=== PATIENT | male | born 1960 | race Caucasian/White ===

== ENCOUNTER → 2018-03-10 | Outpatient (CLI) | payer OTHER ==
--- NOTE | 2018-03-21 00:07 | CON ---
[address] [address] CONSULTATION Name: EDITABILLY MEEKS Room: [facility]..#: [id number] Admission: 03/10/18 Attend Phys: Leon Hauser MD Discharge: Date of : 62 Report #: [id number] THIS REPORT FOR: //name// CC: Dr. Fernando Mackey DATE OF CONSULTATION: March 10, 2018 [facility] RADIATION ONCOLOGY CONSULT NOTE REFERRING PHYSICIANS: Include Edi Bashir MD; Fernando Fuller DO and Dr. Mackey. 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 HISTORY OF PRESENT ILLNESS: The patient is a 57-year-old gentleman who has a past medical history of testicular cancer. He underwent a left orchiectomy on 04/15/1988. This was performed by his urologist, Dr. Encarnacion at [facility]. Pathology revealed seminoma. He indicated that he went on to receive adjuvant radiation therapy at that time at [facility]. He indicated that the radiation therapy lasted about 4 weeks and he has tattoos which indicated to indicate the keily and the bottom as well as the top of the babcock. He then went on to develop mass involving the right testicle and he underwent a right orchiectomy as well. He indicated that he went on to receive testosterone therapy until about 11/26/2017. He also has a history of coronary artery disease and he underwent coronary artery stent placement in 2007. He also has a history of methicillin-resistant Staphylococcus aureus infection and he also has a history of obstructive sleep apnea. He went on to develop pain in the left arm around August 2017. A CT scan of the left humerus revealed a lesion involving that area. He had a biopsy of that lesion on 11/19/[address] Mackey. The pathology revealed metastatic adenocarcinoma consistent with a prostate origin with focal neuroendocrine features. He also had a lesion involving the 7th thoracic vertebral body. He had a PSA checked on 12/02/2017 and it was 24.41. Then he went on to receive treatment with Dr. Bashir. He also received radiation therapy to the proximal left humerus that was completed on 12/18/2017. He received 3000 cGy in 300 cGy daily fractions. He was started on Xgeva, Zytiga, and prednisone in November 2017. He had developed increasing pain in his back. His PSA on 02/23/2018 was 0.28. The patient had a bone scan on 03/02/2018 and that was performed at diagnostic imaging centers and that revealed uptake in the spine that was most pronounced in the thoracic and lumbar spine and most pronounced at the 7th thoracic vertebral body, the 8th thoracic vertebral body, the 9th [place] [address] CONSULTATION Name: BILLY KOHLER Room: [facility] Rafiq#: [id number] Admission: 03/10/18 Attend Phys: Leon Hauser MD Discharge: Date of : 62 Report #: [id number] body, and the 11th thoracic vertebral body. He had an MRI of the thoracic spine on 01/27/2018 and that revealed extensive osseous metastatic disease involving the thoracic vertebral bodies, from the 5th thoracic vertebral body to the 12th thoracic vertebral body. Some metastatic disease involved the medial aspect of the left 8th, 9th and 10th ribs. He presents to be evaluated for possible palliative radiation therapy. His medications are 5 mg oxycodone 2-3 times a day. He is also on 30 mg of extended release morphine twice a day for pain control. PAST MEDICAL HISTORY AND PAST SURGICAL HISTORY: Includes myocardial infarction in 2007, he had coronary artery stents placed at that time, hyperlipidemia, hypertension, history of methicillin-resistant Staphylococcus aureus infection on the chest area, he is also using a CPAP machine for sleep apnea. He had a fistula closure in the rectal area in 2005. MEDICATIONS: Include 30 mg extended release morphine that he takes every 12 hours, 5 mg oxycodone, he takes 2-3 times a day, 81 mg aspirin a day, Mayi, carvedilol, Zytiga, prednisone, Os-Denzel, denosumab, and Ambien. ALLERGIES: HE DOES HAVE AN ADVERSE REACTION TO LISINOPRIL, WHICH CAUSES HIM TO HAVE A COUGH. FAMILY HISTORY: The patient's mother had lung cancer. SOCIAL HISTORY: The patient was in recruiting administrator sales. He is . Cigarettes: He smokes a half pack of cigarettes per day, and has done so for at least the last 5 years. REVIEW OF SYSTEMS: GENERAL: The patient denied having any fevers or chills. SKIN: The patient denied having any color changes or itching. LYMPH NODES: The patient denied having enlarged or painful glands in the neck. ENDOCRINE: He does have some increased thirst. HEMATOLOGY/IMMUNOLOGY: He denied having any recent bleeding. MUSCULOSKELETAL: He has back pain. HEAD AND NECK: He denied having any vertigo. RESPIRATORY: He denied having any wheezing. CARDIOVASCULAR: He denied having any palpitations. GASTROINTESTINAL: He denied having any nausea. NEUROLOGIC: He denied having any focal weakness. PHYSICAL EXAMINATION: VITAL SIGNS: Height was 5 feet 11 inches, weight 217 pounds, blood pressure 123/77, pulse 75, oxygen saturation 97%, respirations 20. LYMPH NODES: He had no cervical or supraclavicular lymphadenopathy. GENERAL PSYCHIATRIC: He was alert, oriented, [place] [address] CONSULTATION Name: BILLY KOHLER Room: [facility]#: [id number] Admission: 03/10/18 Attend Phys: Leon Hauser MD Discharge: Date of : 62 Report #: [id number] EYES: Pupils were equal, round, reactive to light and accommodation. Extraocular movement was intact. HEAD, EARS, NOSE AND THROAT: Mouth had no visible lesions. HEART: Had a regular rate and rhythm without murmur. LUNGS: were clear to auscultation. ABDOMEN: Not tender, he has previous tattoos manrique from his previous treatments that were visible, but otherwise abdomen was not tender. Spleen was not palpable. Liver was at the costal margin. EXTREMITIES: Had no clubbing, cyanosis or edema. NEUROLOGIC: Cranial nerves II to XII were intact. Sensation was intact. He had 5/5 strength in his extremities. MUSCULOSKELETAL: He had tenderness to palpation over the thoracic spine. LABORATORY DATA: From 02/23/2018, hemoglobin 15, platelets 158,000; white blood cell count 11. Sodium 132, potassium 4.5, BUN 31, creatinine 0.9. PSA 0.28. RADIOLOGIC DATA: The patient had a bone scan on 03/02/2018, which revealed uptake in the spine, most pronounced at the 7th thoracic vertebral body, 8th thoracic vertebral body, 9th thoracic vertebral body, and 11th thoracic vertebral body. He also had an MRI of the thoracic spine on 01/27/2018, which revealed extensive osseous metastatic disease involving the thoracic vertebral bodies from the 5th thoracic vertebral body to the 12th thoracic vertebral body. ASSESSMENT AND PLAN: The patient was offered palliative radiation therapy to the thoracic spine. The risks, benefits, logistics of palliative radiation therapy to that area were explained to the patient in detail. The records from [facility] were not available, but he does have tattoo manrique which indicate the extent of his field. He indicated he had 4 weeks of radiation therapy treatments. It appears that he can receive palliative radiation treatment to the thoracic spine. He was told that there is an increased risk of late side effect if there is an overlap with the previously radiated babcock. The patient gave his witnessed, informed consent to proceed with radiation therapy. Thank you very much for this consult. <ELECTRONICALLY SIGNED> By: Leon Hauser MD 03/21/18 [id number] Hauser MD /nt
== END ==
LOC: M.RTH 00:49
DX: Z51.0 Encounter for antineoplastic radiation therapy (principal); C61 Malignant neoplasm of prostate